=== PATIENT | female | born 1975 | race Caucasian/White ===

== ENCOUNTER 2019-09-12 19:06 | Emergency (ER) | payer OTHER ==
[~2019-09-12] VITALS: Ht 165.1 cm; Wt 63.5 kg
[2019-09-12 20:08] VITALS: BP 134/92
== END 2019-09-12 20:08 | disposition home or self-care (01) ==
LOC: M.ERS 19:06
DX: S61.012A Laceration without foreign body of left thumb without damage to nail, initial encounter (principal); W26.0XXA Contact with knife, initial encounter; Y92.89 Other specified places as the place of occurrence of the external cause; Y93.89 Activity, other specified; Y99.0 Civilian activity done for income or pay

== ENCOUNTER 2021-06-04 20:50 | Emergency (ER) | payer OTHER ==
[~2021-06-04] VITALS: Ht 160 cm; Wt 65.8 kg
[2021-06-04] MEDS ORDERED: CEPHALEXIN500 MG PO (21:35)
[2021-06-04 21:45] VITALS: BP 202/127
== END 2021-06-04 21:50 | disposition home or self-care (01) ==
LOC: M.ERS 20:50
DX: S61.211A Laceration without foreign body of left index finger without damage to nail, initial encounter (principal); W45.8XXA Other foreign body or object entering through skin, initial encounter; Y93.89 Activity, other specified; Y92.89 Other specified places as the place of occurrence of the external cause; Y99.0 Civilian activity done for income or pay